=== PATIENT | male | born 1960 | race Caucasian/White ===

== ENCOUNTER → 2020-09-06 10:01 | Outpatient (CLI) | payer OTHER, SELFPAY ==
--- NOTE | 2020-09-06 | CA_ITS ---
APPROVED REPORT Left Lower Extremity Venous Study for DVT. Fox Raiser: KANA Travis Lower Extremity Pain: Current Smoker Lower Extremity Swelling: Left Vein Imaging CFV (L): compressive, spontaneous, phasic, augmentation SFJ (L): compressive, spontaneous, phasic, augmentation FEM (L): compressive, spontaneous, phasic, augmentation POP (L): compressive, spontaneous, phasic, augmentation DFV (L): compressive, spontaneous, phasic, augmentation PTV (L): compressive, spontaneous, phasic, augmentation GSV (L): compressive, spontaneous, phasic, augmentation Peroneals (L):compressive, spontaneous, phasic, augmentation GAS (L): compressive, spontaneous, phasic, augmentation, Findings No evidence of DVT or SVT in the left lower extremity. Complex cystic structure located in the left popliteal fossa. Conclusion No evidence of DVT or SVT in the left lower extremity. Complex cystic structure located in the left popliteal fossa. Electronically signed by : Heber Kaur MD 09/06/2020 16:38:41
== END ==
PROVIDERS: PCP Nurse Practitioner Family; Visit Provider Nurse Practitioner Family
DX: M79.605 Pain in left leg (principal); I83.12 Varicose veins of left lower extremity with inflammation
CPT/HCPCS: 93971